=== PATIENT | female | born 2000 | race African-American/Black ===

== ENCOUNTER 2018-12-26 18:11 | Emergency (ER) | payer BC | END 2018-12-26 19:40 | disposition home or self-care (01) | LOC: JERFT 18:11 ==

== ENCOUNTER 2025-01-10 19:58 | Emergency (ER) | payer BC, OTHER ==
[2025-01-10 20:05] VITALS: TEMP 98.2; BMI 27.4
[2025-01-10] MEDS ORDERED: ACETAMINOPHEN INJECTION 100 ML ONE (22:34)
[2025-01-10 22:40] LABS: ABSOLUTE IMMATURE GRANULOCYTES 0.01 x10^3/uL (0.0-0.031); BASOPHILS # 0.02 x10^3/uL (0.01-0.08); EOSINOPHIL % 0.4 % (0.7-5.8); EOSINOPHILS # 0.03 x10^3/uL (0.04-0.36); MCHC 32.3 g/dl (32.2-35.5); MEAN CELL VOLUME 90.8 fl (79.4-94.8); MEAN PLT VOLUME 9.7 fl (9.4-12.3); MONOCYTE # 0.38 x10^3/uL (0.24-0.86); MONOCYTE % 5.0 % (4.7-12.5); RDW 12.7 % (12.1-16.5)
[2025-01-10 23:03] LABS: GLUCOSE,RANDOM 81.0 mg/dL (74-106)
[2025-01-10 23:04] LABS: CO2 22.0 mmol/L (21-32)
[2025-01-10 23:08] LABS: CREATININE 0.82 mg/dL (0.55-1.3)
[2025-01-10 23:28] LABS: HCV DIAGNOSTIC IN-HOUSE W/RFLX NON-REACTIVE (NONREACTIVE)
[2025-01-10 23:29] LABS: HIV INTERPRETATION NEGATIVE (NEGATIVE)
[2025-01-10 23:35] LABS: URINE APPEARANCE CLEAR; URINE BILIRUBIN NEGATIVE (NEGATIVE); URINE COLOR YELLOW; URINE GLUCOSE (UA) NEGATIVE (NEGATIVE); URINE KETONE 2+ (NEGATIVE); URINE LEUK ESTERASE NEGATIVE (NEGATIVE); URINE NITRITE NEGATIVE (NEGATIVE); URINE PROTEIN TRACE (NEGATIVE); URINE UROBILINOGEN 0.2 mg/dL (0.2-1.0)
[2025-01-10] MEDS: ACETAMINOPHEN 1000 MG/100 ML BAG IVPB ONE (23:38)
[2025-01-11] MEDS ORDERED: DOXYCYCLINE HYCLATE 100 MG TABLET PO ONE (01:26)
[2025-01-11] MEDS ORDERED: LIDOCAINE HCL 1%, 10 MG/ML (20ML VIAL) ONE (01:27)
[2025-01-11] MEDS: DOXYCYCLINE HYCLATE 100 MG TABLET PO ONE (01:28)
[2025-01-11 01:45] VITALS: BP 104/63; PULSE 74; RESP 16
== END 2025-01-11 01:51 | disposition home or self-care (01) ==
LOC: JER 19:58
PROC: 3E033NZ Introduction of Analgesics, Hypnotics, Sedatives into Peripheral Vein, Percutaneous Approach (ICD-10-PCS; principal; 2025-01-10)
PROC: 3E02329 Introduction of Other Anti-infective into Muscle, Percutaneous Approach (ICD-10-PCS; 2025-01-11)
DX: R10.32 Left lower quadrant pain (principal)
CPT/HCPCS: 36415; 76830-TC; 80048; 81003; 84703; 85025; 86803; 87086; 87389; 87491; 87591; 87661